=== PATIENT | female | born 1950 | race Caucasian/White ===

== ENCOUNTER 2023-03-10 19:58 | Emergency (ER) | payer OTHER ==
[~2023-03-10] VITALS: Ht 165.1 cm; Wt 63.5 kg
[2023-03-10 20:02] VITALS: BP_SYST 123
--- NOTE | 2023-03-10 20:15 | NUR ---
Pt brought by self, A&Ox4, pt presents to ER with cough, congestion, SOB with exertion ,O2 97%, skin pink and warm, cap refill <3, VSS.
--- NOTE | 2023-03-10 20:33 | NUR ---
Patient to ER bed 06 to gown for evaluation. Side rails up.
--- NOTE | 2023-03-10 20:44 | NUR ---
Pt from home with c/o cough since tuesday. Pt states she has left sided abd pain radiating to the back. Pt states she took tylenol before arriving for pain, unk dosage. Granddaughter at bedside. Safety precautions in place.
--- NOTE | 2023-03-10 20:48 | NUR ---
Dr. Lisa with patient at bedside for MSE.
[2023-03-10] MEDS ORDERED: AZITHROMYCIN 250 MG TABLET PO ONE (21:00)
[2023-03-10] MEDS ORDERED: D-ME120S20 PO (21:01)
[2023-03-10] MEDS ORDERED: ALBMDI INH (21:01)
[2023-03-10] MEDS ORDERED: CEFU250T85 PO (21:01)
[2023-03-10] MEDS ORDERED: ZIT250 PO (21:01)
[2023-03-10 21:30] VITALS: BP_SYST 107
--- NOTE | 2023-03-10 21:30 | NUR ---
Patient given written and verbal discharge instructions and verbalizes understanding. ER MD discussed with patient the results and treatment provided. Patient in stable condition. Rx of Azithromycin, Ceftin, Promethazine-DM and Albuterol given. Patient educated on pain management and to follow up with PMD. Pain Scale 0/10. Opportunity for questions provided and answered.
== END 2023-03-10 21:30 | disposition home or self-care (01) ==
LOC: SED 19:58
DX: J18.1 Lobar pneumonia, unspecified organism (principal); R05.9 Cough, unspecified; R06.02 Shortness of breath; I10 Essential (primary) hypertension; Z79.899 Other long term (current) drug therapy; Z20.822 Contact with and (suspected) exposure to COVID-19
CPT/HCPCS: 99285; 71045; 87426; 36415; 93005; 87804 ×2; Q0144

== ENCOUNTER 2024-02-27 00:08 | Inpatient (IN) | payer OTHER, MEDICAID ==
[2024-02-27] VITALS (7 sets, daily range): BP systolic 98–136; PULSE 51–82; RESP 18–20; TEMP 97–98.1; O2SAT 96–98
[~2024-02-27] VITALS: Ht 152.4 cm; Wt 68.9 kg
[~2024-02-27 00:08] MED LIST: ALBMDI INH; CEFU250T85 PO; D-ME120S28 PO; ZIT250 PO
[2024-02-27] MEDS: ASPIRIN 325 MG TABLET PO ONE (00:26)
[2024-02-27 00:43] LABS: BASOPHILS # (AUTO) 0.1 K/uL (0.0-0.2); BASOPHILS % (AUTO) 0.5 % (0.0-2.0); EOSINOPHILS # (AUTO) 0.2 K/uL (0.0-0.4); EOSINOPHILS % (AUTO) 1.1 % (0.0-4.0); HEMATOCRIT 39.6 % (36-48); HEMOGLOBIN 13.5 g/dL (12.0-16.0); LYMPHOCYTES % (AUTO) 14.3 % (20.5-51.5); MEAN CORPUSCULAR HEMOGLOBIN 28 pg (27-31); MEAN CORPUSCULAR HGB CONC 34 % (32-36); MEAN CORPUSCULAR VOLUME 83 fL (79.0-98.0); MONOCYTES # (AUTO) 1.1 K/uL (0.0-1.0); MONOCYTES % (AUTO) 8.2 % (1.7-9.3); NEUTROPHILS # (AUTO) 10.5 K/uL (1.8-7.7); NEUTROPHILS % (AUTO) 75.9 % (40.0-70.0); PLATELET COUNT (AUTO) 212 K/uL (130-430); RED BLOOD CELL COUNT(AUTO) 4.77 MIL/uL (4.2-6.2); RED CELL DISTRIBUTION WIDTH 13.7 % (9.0-15.0); WHITE BLOOD COUNT (AUTO) 13.8 K/uL (4.8-10.8)
[2024-02-27] MEDS: MORPHINE 2 MG/ML INJ. SYRINGE IVP ONE (00:46)
[2024-02-27 01:27] LABS: ANION GAP 11 (5-15); CALCIUM 8.6 mg/dL (8.4-11.0); CARBON DIOXIDE 26 mmol/L (23-29); CHLORIDE 105 mmol/L (98-107); CREATININE 0.66 mg/dL (0.55-1.30); GLUCOSE 123 mg/dL (74-106); POTASSIUM 3.6 mmol/L (3.5-5.1); SODIUM SERUM 142 mmol/L (136-145); UREA NITROGEN, BLOOD 14 mg/dL (8-21)
[2024-02-27] MEDS: NACL 0.9% 1,000 ML IV ONE (01:41)
[2024-02-27] MEDS ORDERED: iohexoL 350 mgI/mL, 100 ML INFUS..BTL IV ONE (01:44)
[2024-02-27] MEDS: ONDANSETRON HCL 4 MG/2 ML VIAL IVP ONE (01:44)
[2024-02-27] MEDS: cefTRIAXone 1 GM IVPB PREMIX 50 ML IV ONE (04:39)
[2024-02-27] MEDS ORDERED: AZITHROMYCIN 500 MG/VIAL (ZITHROMAX) IV ONE (05:07)
[2024-02-27] MEDS: AZITHROMYCIN 500 MG in NS 250 ML IV ONE (05:10)
[2024-02-27] MEDS ORDERED: METO-304 PO (06:08)
[2024-02-27] MEDS ORDERED: LOSA50TA28 PO (06:08)
[2024-02-27] MEDS ORDERED: ATOR-1 PO (06:08)
[2024-02-27] MEDS ORDERED: ASPI-1393 PO (06:08)
[2024-02-27] MEDS ORDERED: CALC-1085 PO (06:08)
[2024-02-27] MEDS ORDERED: ALBUTEROL SULFATE 0.083% 2.5 MG/3 ML VIAL.NEB INH PRN (10:00)
[2024-02-27] MEDS ORDERED: NALOXONE HCL 0.4 MG/ML AMP (NARCAN) IVP PRN ×2 (10:00)
[2024-02-27] MEDS ORDERED: LORazepam 2 MG/ML VIAL IVP PRN (10:00)
[2024-02-27] MEDS ORDERED: ACETAMINOPHEN 325 MG TABLET PO PRN (10:00)
[2024-02-27] MEDS ORDERED: PROMETHAZINE-DM 6.25 MG-15 MG/5 ML UDC PO PRN (10:00)
[2024-02-27] MEDS ORDERED: HYDROcodone/ACETAMIN 10-325 MG TAB PO PRN (10:00)
[2024-02-27] MEDS ORDERED: ONDANSETRON HCL 4 MG/2 ML VIAL IVP PRN (10:00)
[2024-02-27] MEDS ORDERED: IPRATROPIUM BROM 0.5 MG/2.5 ML VIAL.NEB (ATROVENT) INH PRN (10:00)
[2024-02-27] MEDS: LOSARTAN POTASSIUM 50 MG TABLET (COZAAR) PO ONE (11:57)
[2024-02-27] MEDS: METOPROLOL SUCCINATE 25 MG TAB.SR.24H (TOPROL XL) PO ONE (11:58)
[2024-02-27] MEDS: ASPIRIN 81 MG TABLET(ECOTRIN) PO ONE (11:58)
[2024-02-27] MEDS: ACETAMINOPHEN 325 MG TABLET PO PRN (12:00)
[2024-02-27] MEDS: NORMAL SALINE 5 ML DISP.SYRIN IVF SCH (14:30)
[2024-02-27] MEDS ORDERED: IPRATROPIUM/ALBUTEROL SULFATE 3 ML AMPUL.NEB (DUONEB) INH PRN (19:15)
[2024-02-27] MEDS: ATORVASTATIN 20 MG TABLET PO SCH (21:56)
[2024-02-27] MEDS: CALCIUM CARBONATE/VITAMIN D3 1 TAB TABLET PO SCH (21:56)
[2024-02-28] VITALS: BP_SYST 131; PULSE 72; RESP 18; TEMP 96.8; O2SAT 97
[2024-02-28 04:07] LABS: BASOPHILS % (AUTO) 0.4 % (0.0-2.0); EOSINOPHILS # (AUTO) 0.2 K/uL (0.0-0.4); EOSINOPHILS % (AUTO) 1.4 % (0.0-4.0); HEMATOCRIT 37.9 % (36-48); HEMOGLOBIN 12.7 g/dL (12.0-16.0); LYMPHOCYTES # (AUTO) 2.3 K/uL (1.0-5.5); LYMPHOCYTES % (AUTO) 19.2 % (20.5-51.5); MEAN CORPUSCULAR HEMOGLOBIN 28 pg (27-31); MEAN CORPUSCULAR HGB CONC 34 % (32-36); MEAN CORPUSCULAR VOLUME 84 fL (79.0-98.0); MONOCYTES # (AUTO) 0.7 K/uL (0.0-1.0); MONOCYTES % (AUTO) 6.3 % (1.7-9.3); NEUTROPHILS # (AUTO) 8.7 K/uL (1.8-7.7); NEUTROPHILS % (AUTO) 72.7 % (40.0-70.0); PLATELET COUNT (AUTO) 232 K/uL (130-430); RED BLOOD CELL COUNT(AUTO) 4.53 MIL/uL (4.2-6.2); RED CELL DISTRIBUTION WIDTH 13.8 % (9.0-15.0); WHITE BLOOD COUNT (AUTO) 11.9 K/uL (4.8-10.8)
[2024-02-28 04:30] LABS: ANION GAP 10 (5-15); CALCIUM 9.2 mg/dL (8.4-11.0); CARBON DIOXIDE 29 mmol/L (23-29); CHLORIDE 106 mmol/L (98-107); CREATININE 0.72 mg/dL (0.55-1.30); GLUCOSE 112 mg/dL (74-106); POTASSIUM 3.8 mmol/L (3.5-5.1); SODIUM SERUM 145 mmol/L (136-145); UREA NITROGEN, BLOOD 10 mg/dL (8-21)
[2024-02-28 08:26] VITALS: BP_SYST 137; PULSE 66; RESP 14; TEMP 97.3; O2SAT 97
[2024-02-28] MEDS: ASPIRIN 81 MG TABLET(ECOTRIN) PO SCH (08:58)
[2024-02-28] MEDS: METOPROLOL SUCCINATE 25 MG TAB.SR.24H (TOPROL XL) PO SCH (08:59)
[2024-02-28] MEDS: LOSARTAN POTASSIUM 50 MG TABLET (COZAAR) PO SCH (08:59)
[2024-02-28] MEDS: ENOXAPARIN SODIUM 30 MG/0.3 ML SYRINGE SUBCUT SCH (09:00)
[2024-02-28] MEDS: AZITHROMYCIN 500 MG in NS 250 ML IV SCH (10:15)
[2024-02-28] MEDS: cefTRIAXone 1 GM IVPB PREMIX 50 ML IV SCH (10:16)
[2024-02-28 12:06] VITALS: BP_SYST 123; PULSE 61; RESP 17; TEMP 97.9; O2SAT 97
[2024-02-28 16:00] VITALS: BP_SYST 111; PULSE 68; RESP 17; TEMP 98.1; O2SAT 96
[2024-02-28 20:00] VITALS: BP_SYST 117; PULSE 61; RESP 16; TEMP 98.7; O2SAT 96
[2024-02-29] VITALS: BP_SYST 148; PULSE 68; RESP 16; TEMP 96.9; O2SAT 97
[2024-02-29 05:59] LABS: BASOPHILS % (AUTO) 0.5 % (0.0-2.0); EOSINOPHILS # (AUTO) 0.2 K/uL (0.0-0.4); EOSINOPHILS % (AUTO) 2.2 % (0.0-4.0); HEMATOCRIT 38.8 % (36-48); HEMOGLOBIN 13.5 g/dL (12.0-16.0); LYMPHOCYTES # (AUTO) 2.5 K/uL (1.0-5.5); LYMPHOCYTES % (AUTO) 25.9 % (20.5-51.5); MEAN CORPUSCULAR HEMOGLOBIN 29 pg (27-31); MEAN CORPUSCULAR HGB CONC 35 % (32-36); MEAN CORPUSCULAR VOLUME 84 fL (79.0-98.0); MONOCYTES # (AUTO) 0.9 K/uL (0.0-1.0); MONOCYTES % (AUTO) 9.1 % (1.7-9.3); NEUTROPHILS # (AUTO) 6.1 K/uL (1.8-7.7); NEUTROPHILS % (AUTO) 62.3 % (40.0-70.0); PLATELET COUNT (AUTO) 248 K/uL (130-430); RED BLOOD CELL COUNT(AUTO) 4.64 MIL/uL (4.2-6.2); RED CELL DISTRIBUTION WIDTH 13.5 % (9.0-15.0); WHITE BLOOD COUNT (AUTO) 9.8 K/uL (4.8-10.8)
[2024-02-29 06:07] LABS: ERYTHROCYTE SEDIMENTATION RATE 50 MM/HR (0-20)
[2024-02-29 06:56] LABS: ALANINE AMINOTRANSFERASE 86 U/L (12-78); ANION GAP 11 (5-15); ASPARTATE AMINOTRANSFERASE 26 U/L (10-37); CALCIUM 9.7 mg/dL (8.4-11.0); CARBON DIOXIDE 28 mmol/L (23-29); CHLORIDE 105 mmol/L (98-107); CREATININE 0.72 mg/dL (0.55-1.30); GLUCOSE 96 mg/dL (74-106); SODIUM SERUM 144 mmol/L (136-145); TOTAL BILIRUBIN 0.4 mg/dL (0.0-1.0); TOTAL PROTEIN, SERUM 7.5 g/dL (6.4-8.3); UREA NITROGEN, BLOOD 9 mg/dL (8-21)
[2024-02-29 08:00] VITALS: BP_SYST 137; PULSE 96; RESP 18; TEMP 97.9; O2SAT 98
[2024-02-29 12:37] VITALS: BP_SYST 139; PULSE 82; RESP 17; TEMP 97.2; O2SAT 97
[2024-02-29 16:40] VITALS: BP_SYST 138; PULSE 87; RESP 18; TEMP 97.5; O2SAT 99
[2024-02-29 20:00] VITALS: BP_SYST 133; PULSE 64; RESP 18; TEMP 97.2; O2SAT 97
[2024-03-01] VITALS: BP_SYST 136; PULSE 69; RESP 18; TEMP 97.6; O2SAT 96
[2024-03-01 05:36] LABS: BASOPHILS % (AUTO) 0.6 % (0.0-2.0); EOSINOPHILS # (AUTO) 0.3 K/uL (0.0-0.4); EOSINOPHILS % (AUTO) 3.8 % (0.0-4.0); HEMATOCRIT 39.2 % (36-48); HEMOGLOBIN 13.5 g/dL (12.0-16.0); LYMPHOCYTES # (AUTO) 2.3 K/uL (1.0-5.5); LYMPHOCYTES % (AUTO) 27.9 % (20.5-51.5); MEAN CORPUSCULAR HEMOGLOBIN 29 pg (27-31); MEAN CORPUSCULAR HGB CONC 34 % (32-36); MEAN CORPUSCULAR VOLUME 83 fL (79.0-98.0); MONOCYTES # (AUTO) 0.7 K/uL (0.0-1.0); MONOCYTES % (AUTO) 8.8 % (1.7-9.3); NEUTROPHILS # (AUTO) 4.9 K/uL (1.8-7.7); NEUTROPHILS % (AUTO) 58.9 % (40.0-70.0); PLATELET COUNT (AUTO) 264 K/uL (130-430); RED BLOOD CELL COUNT(AUTO) 4.71 MIL/uL (4.2-6.2); RED CELL DISTRIBUTION WIDTH 13.4 % (9.0-15.0); WHITE BLOOD COUNT (AUTO) 8.3 K/uL (4.8-10.8)
[2024-03-01 05:41] LABS: ERYTHROCYTE SEDIMENTATION RATE 42 MM/HR (0-20)
[2024-03-01 05:54] LABS: ANION GAP 9 (5-15); CALCIUM 9.5 mg/dL (8.4-11.0); CARBON DIOXIDE 30 mmol/L (23-29); CHLORIDE 105 mmol/L (98-107); GLUCOSE 97 mg/dL (74-106); POTASSIUM 3.9 mmol/L (3.5-5.1); SODIUM SERUM 144 mmol/L (136-145); UREA NITROGEN, BLOOD 12 mg/dL (8-21)
[2024-03-01 08:00] VITALS: BP_SYST 118; PULSE 82; RESP 18; TEMP 97.8; O2SAT 100; O2SAT 97
[2024-03-01] MEDS: HYDROcodone/ACETAMIN 5-325 MG TAB (NORCO/ VICODIN) PO PRN (09:03)
[2024-03-01 12:00] VITALS: BP_SYST 122; PULSE 91; RESP 16; TEMP 98; O2SAT 98
[2024-03-01 13:07] LABS: QUANTIFERON TB GOLD Negative (Negative)
[2024-03-01 16:08] VITALS: BP_SYST 128; PULSE 84; RESP 18; TEMP 97.9; O2SAT 97
[2024-03-01 20:00] VITALS: BP_SYST 130; PULSE 64; RESP 18; TEMP 97.4; O2SAT 97
[2024-03-02 00:14] VITALS: BP_SYST 122; PULSE 75; RESP 16; TEMP 96.8; O2SAT 95
[2024-03-02 05:25] LABS: BASOPHILS % (AUTO) 0.3 % (0.0-2.0); EOSINOPHILS # (AUTO) 0.3 K/uL (0.0-0.4); HEMATOCRIT 37.5 % (36-48); HEMOGLOBIN 12.8 g/dL (12.0-16.0); LYMPHOCYTES # (AUTO) 2.9 K/uL (1.0-5.5); LYMPHOCYTES % (AUTO) 30.1 % (20.5-51.5); MEAN CORPUSCULAR HEMOGLOBIN 28 pg (27-31); MEAN CORPUSCULAR HGB CONC 34 % (32-36); MEAN CORPUSCULAR VOLUME 83 fL (79.0-98.0); MONOCYTES # (AUTO) 0.9 K/uL (0.0-1.0); MONOCYTES % (AUTO) 9.3 % (1.7-9.3); NEUTROPHILS # (AUTO) 5.5 K/uL (1.8-7.7); NEUTROPHILS % (AUTO) 57.3 % (40.0-70.0); PLATELET COUNT (AUTO) 281 K/uL (130-430); RED CELL DISTRIBUTION WIDTH 13.2 % (9.0-15.0); WHITE BLOOD COUNT (AUTO) 9.6 K/uL (4.8-10.8)
[2024-03-02 05:52] LABS: ALANINE AMINOTRANSFERASE 85 U/L (12-78); ANION GAP 6 (5-15); ASPARTATE AMINOTRANSFERASE 36 U/L (10-37); CARBON DIOXIDE 31 mmol/L (23-29); CHLORIDE 103 mmol/L (98-107); CREATININE 0.71 mg/dL (0.55-1.30); GLUCOSE 95 mg/dL (74-106); POTASSIUM 4.3 mmol/L (3.5-5.1); SODIUM SERUM 140 mmol/L (136-145); TOTAL BILIRUBIN 0.3 mg/dL (0.0-1.0); TOTAL PROTEIN, SERUM 7.1 g/dL (6.4-8.3); UREA NITROGEN, BLOOD 15 mg/dL (8-21)
[2024-03-02 06:26] LABS: ERYTHROCYTE SEDIMENTATION RATE 22 MM/HR (0-20)
[2024-03-02 08:00] VITALS: BP_SYST 148; PULSE 58; RESP 16; TEMP 97.4; O2SAT 97
[2024-03-02 13:02] VITALS: BP_SYST 142; PULSE 62; RESP 17; TEMP 97.2; O2SAT 97
[2024-03-02 16:40] VITALS: BP_SYST 145; PULSE 60; RESP 16; TEMP 97.5; O2SAT 98
[2024-03-02 19:49] VITALS: O2SAT 98
[2024-03-02 20:00] VITALS: BP_SYST 125; BP_SYST 130; PULSE 60; PULSE 61; RESP 18; TEMP 97.4; TEMP 97.7; O2SAT 96; O2SAT 97
[2024-03-03 00:37] VITALS: BP_SYST 114; PULSE 68; RESP 15; TEMP 96.8; O2SAT 98
[2024-03-03 02:06] LABS: COCCIDIOIDES AB IGG 0.8 IV (<=0.9); COCCIDIOIDES AB IGM 0.1 IV (<=0.9)
[2024-03-03 06:26] LABS: BASOPHILS # (AUTO) 0.1 K/uL (0.0-0.2); BASOPHILS % (AUTO) 0.7 % (0.0-2.0); EOSINOPHILS # (AUTO) 0.3 K/uL (0.0-0.4); EOSINOPHILS % (AUTO) 3.6 % (0.0-4.0); HEMATOCRIT 37.7 % (36-48); HEMOGLOBIN 12.8 g/dL (12.0-16.0); LYMPHOCYTES # (AUTO) 2.7 K/uL (1.0-5.5); LYMPHOCYTES % (AUTO) 33.3 % (20.5-51.5); MEAN CORPUSCULAR HEMOGLOBIN 29 pg (27-31); MEAN CORPUSCULAR HGB CONC 34 % (32-36); MEAN CORPUSCULAR VOLUME 84 fL (79.0-98.0); MONOCYTES # (AUTO) 0.6 K/uL (0.0-1.0); MONOCYTES % (AUTO) 7.7 % (1.7-9.3); NEUTROPHILS # (AUTO) 4.5 K/uL (1.8-7.7); NEUTROPHILS % (AUTO) 54.7 % (40.0-70.0); PLATELET COUNT (AUTO) 292 K/uL (130-430); RED BLOOD CELL COUNT(AUTO) 4.48 MIL/uL (4.2-6.2); RED CELL DISTRIBUTION WIDTH 13.2 % (9.0-15.0); WHITE BLOOD COUNT (AUTO) 8.2 K/uL (4.8-10.8)
[2024-03-03 06:46] LABS: ANION GAP 7 (5-15); CALCIUM 9.1 mg/dL (8.4-11.0); CARBON DIOXIDE 30 mmol/L (23-29); CHLORIDE 103 mmol/L (98-107); CREATININE 0.64 mg/dL (0.55-1.30); GLUCOSE 93 mg/dL (74-106); SODIUM SERUM 140 mmol/L (136-145); UREA NITROGEN, BLOOD 15 mg/dL (8-21)
[2024-03-03 07:53] LABS: ERYTHROCYTE SEDIMENTATION RATE 39 MM/HR (0-20)
[2024-03-03 08:00] VITALS: BP_SYST 135; PULSE 75; RESP 14; TEMP 98.1; O2SAT 96
[2024-03-03 11:19] VITALS: BP_SYST 132; PULSE 71; RESP 16; TEMP 97.6; O2SAT 94
[2024-03-03 15:31] VITALS: BP_SYST 99; PULSE 65; RESP 16; TEMP 97.1; O2SAT 97
[2024-03-03 20:00] VITALS: BP_SYST 130; PULSE 61; RESP 18; TEMP 97.7; O2SAT 96
[2024-03-04 07:06] LABS: BASOPHILS % (AUTO) 0.5 % (0.0-2.0); EOSINOPHILS # (AUTO) 0.3 K/uL (0.0-0.4); HEMATOCRIT 37.6 % (36-48); HEMOGLOBIN 12.9 g/dL (12.0-16.0); LYMPHOCYTES # (AUTO) 2.6 K/uL (1.0-5.5); LYMPHOCYTES % (AUTO) 28.6 % (20.5-51.5); MEAN CORPUSCULAR HEMOGLOBIN 28 pg (27-31); MEAN CORPUSCULAR HGB CONC 34 % (32-36); MEAN CORPUSCULAR VOLUME 83 fL (79.0-98.0); MONOCYTES # (AUTO) 0.8 K/uL (0.0-1.0); MONOCYTES % (AUTO) 8.8 % (1.7-9.3); NEUTROPHILS # (AUTO) 5.5 K/uL (1.8-7.7); NEUTROPHILS % (AUTO) 59.1 % (40.0-70.0); PLATELET COUNT (AUTO) 298 K/uL (130-430); RED BLOOD CELL COUNT(AUTO) 4.53 MIL/uL (4.2-6.2); RED CELL DISTRIBUTION WIDTH 13.1 % (9.0-15.0); WHITE BLOOD COUNT (AUTO) 9.2 K/uL (4.8-10.8)
[2024-03-04 07:16] LABS: ERYTHROCYTE SEDIMENTATION RATE 29 MM/HR (0-20)
[2024-03-04 07:18] LABS: ANION GAP 8 (5-15); CALCIUM 8.6 mg/dL (8.4-11.0); CARBON DIOXIDE 29 mmol/L (23-29); CHLORIDE 107 mmol/L (98-107); CREATININE 0.58 mg/dL (0.55-1.30); GLUCOSE 91 mg/dL (74-106); POTASSIUM 4.1 mmol/L (3.5-5.1); SODIUM SERUM 144 mmol/L (136-145); UREA NITROGEN, BLOOD 15 mg/dL (8-21)
[2024-03-04 08:00] VITALS: BP_SYST 138; PULSE 72; RESP 14; TEMP 98.2; O2SAT 98
[2024-03-04 12:00] VITALS: BP_SYST 117; PULSE 59; RESP 14; TEMP 98.3; O2SAT 98
[2024-03-04 15:25] VITALS: PULSE 18; O2SAT 98
[2024-03-04] MEDS ORDERED: AUG875 PO (15:43)
[2024-03-04 16:00] VITALS: BP_SYST 132; PULSE 68; RESP 14; TEMP 98.2; O2SAT 96
[2024-03-04 17:38] VITALS: BP_SYST 128; PULSE 72; RESP 16; TEMP 98.7; O2SAT 98
== END 2024-03-04 19:00 | disposition home or self-care (01) | DRG 871 ==
LOC: SED 00:08 → STU 04:59 → SMU 18:26
PROVIDERS: ADMIT Preventive Medicine Preventive Medicine/Occupational Environmental Medicine; ATTEND Preventive Medicine Preventive Medicine/Occupational Environmental Medicine
DX: A41.9 Sepsis, unspecified organism (principal); J18.9 Pneumonia, unspecified organism; A15.0 Tuberculosis of lung; E78.5 Hyperlipidemia, unspecified; I10 Essential (primary) hypertension; Z79.899 Other long term (current) drug therapy; E88.09 Other disorders of plasma-protein metabolism, not elsewhere classified; J45.909 Unspecified asthma, uncomplicated
CPT/HCPCS: 36415; 71045; 71275; 80048; 80053; 82948; 83605; 83880; 84484; 85025; 85651; 86480; 86635; 87040; 87116; 93005; 93306; 94070; 97163-GP; 99291; J0456; J0696; J1650; J2270; J2405; J7050; Q9967